=== PATIENT | male | born 1965 | race Caucasian/White ===

== ENCOUNTER 2020-08-29 21:29 | Emergency (ER) | payer MEDICAID, SELFPAY ==
[2020-08-29 21:30] VITALS: BP 157/100; PULSE 81; RESP 16; TEMP 37; O2SAT 96; BMI 30.4
--- NOTE | 2020-08-29 21:46 | ED.VISSUMM ---
- ER Visit Summary Date of Service: 08/29/20 Chief Complaint: Suicidal ideation History of Present Illness: The patient is a 55 M who reports that he has had suicidal ideation for 12 years since his dad . States that he has been hospitalized at [facility] 25 times. However, he denies recent hospitalization. He does report that he is on an antidepressant which she is taking. He does not remember the name of this. Patient denies any specific plan. He states that he is had a 12 pack of beer tonight. Review of systems: General: No fever, chills, cold sweats. Cardiovascular: No chest pain, palpitations. Respiratory: No cough, shortness of breath, dyspnea on exertion. Gastrointestinal: No abdominal pain, nausea, vomiting, diarrhea, melena, or hematochezia. Genitourinary: No dysuria, frequency, hematuria. Skin: No rash. Neuro: No headache, numbness, weakness. Physical Examination: Vitals: Stable. Afebrile. General: Well-nourished and well-developed. Head: Normocephalic atraumatic. Neck: Supple, no lymphadenopathy. No JVD. Nontender. Cardiovascular: Regular rate and rhythm. No murmurs. Respiratory: No respiratory distress. Clear to auscultation bilaterally. Abdominal: Soft, nontender, nondistended, normal bowel sounds. No guarding, rebound, or peritoneal signs. Back: Nontender. Extremities: Nontender, no edema. Skin: Normal color, no rash. Neurologic: Alert and oriented ?3. Cranial nerves II through XII are intact. Normal strength and sensation. Mental status exam: Patient appears their stated age. Good posture and grooming. Good eye contact. Normal rate, volume, and latency of speech. No homicidal ideation. No auditory or visual hallucinations. Flow of thought is logical. Insight and judgment is fair. Test Results: CBC shows a white count of 11.2. Chem-7 is normal. Alcohol level is 201. Emergency Department Course and Treatment: Patient is resting comfortably without complaint. Treatment Plan: Patient will be observed in telemetry his blood alcohol level is less than 100 and this will be approximately 3 AM. He will then be discussed with the counseling center. Disposition: Pending Impression: 1. Suicidal ideation. 2. Alcohol intoxication. This note was generated with [employer] software. It may contain incorrect words, spelling, and punctuation that were not noted in review of the chart prior to signing ED Disposition - Plan for ED Patient: Referrals: Tl Lea MD [Primary Care Provider] -
[2020-08-29 22:12] LABS: Absolute Lymphocyte Count 2.86 X10^3/uL (0.83-4.51); Absolute Neutrophil Count 7.4 X10^3/uL (2.0-7.7); Basophil% 0.9 % (0-1); Eosinophils% 0.9 % (0-5); Hematocrit 48.1 % (40-54); Hemoglobin 15.8 g/dL (13.0-16.5); Lymphocyte # 2.86 X10^3/ul (4.0); Lymphocyte % 25.6 % (19-41); Mean Corp Hgb Conc 32.8 g/dL (32-36); Mean Corpuscular Hgb 30.1 pg (27.0-32.0); Mean Corpuscular Volume 91.6 fL (80-94); Mean Platelet Vol. 9.8 fl (6.2-12.0); Monocyte# 0.66 X10^3/uL; Monocyte% 5.9 % (0-10); NRBC Flagged by Analyzer 0 % (0-5); Neutrophil # 7.41 X10^3/uL (2.7-7.7); Neutrophil % 66.3 % (47-70); Platelet Count 294 K/mm3 (150-450); RBC Distribution Width SD 47.3 fl (35.1-43.9); Red Blood Count 5.25 M/mm3 (4.6-6.2); White Blood Count 11.2 K/mm3 (4.4-11.0)
[2020-08-29 22:21] LABS: Anion Gap 3 (5-15); BUN 11 mg/dL (7-18); BUN/Creat Ratio 11.4 RATIO (10-20); Calcium,Total 9.4 mg/dL (8.5-10.1); Chloride 107 mmol/L (98-107); Creatinine, Serum 0.96 mg/dL (0.70-1.30); EST Glomerular Filtration Rate 87 mL/min (>60); Est Glom Filt Rate - Afr Amer 105 mL/min (>60); Glucose 86 mg/dL (74-106); Potassium 3.5 mmol/L (3.5-5.1); Sodium Level 141 mmol/L (136-145)
[2020-08-29 22:48] VITALS: RESP 16
[2020-08-29 23:30] VITALS: RESP 16
[2020-08-30] VITALS (10 sets, daily range): BP systolic 134–144; BP diastolic 79–109; PULSE 79–80; RESP 14–18; TEMP 36.9; O2SAT 94–95
[2020-08-30 03:24] LABS: Vista UDS pH Range 5
[2020-08-30 03:51] LABS: Amphetamine Urine VISTA NEGATIVE (<1000 ng/mL); Barbiturate Urine VISTA NEGATIVE (< 200 ng/mL); Benzodiazepine Urine VISTA NEGATIVE (< 200 ng/mL); Cocaine Urine VISTA NEGATIVE (< 300 ng/mL); Ecstacy Urine VISTA NEGATIVE (< 500 ng/mL); Methadone Urine VISTA NEGATIVE (< 300 ng/mL); PCP Urine VISTA NEGATIVE (< 25 ng/mL); THC Urine VISTA NEGATIVE (< 50 ng/mL)
--- NOTE | 2020-08-30 05:22 | ED.RN ---
[facility] CALLED, PATIENT IS PENDING [facility]ILIP MANZO
--- NOTE | 2020-08-30 06:09 | ED.RN ---
ACCEPTED TO [facility], FAXED OVER [facility] AND ALSO DRUG SCREEN RESULTS
== END 2020-08-30 09:03 | disposition home or self-care (01) ==
LOC: ED 22:59
PROVIDERS: Emergency Medicine; Emergency Provider Emergency Medicine
DX: R45.851 Suicidal ideations (principal); F10.129 Alcohol abuse with intoxication, unspecified; F17.200 Nicotine dependence, unspecified, uncomplicated; E78.00 Pure hypercholesterolemia, unspecified
CPT/HCPCS: 36415; 80048; 80307; 82077; 85025; 87426; 99285